=== PATIENT | male | born 1975 | race Caucasian/White ===

== ENCOUNTER 2017-03-23 07:04 | Day surgery (SDC) | payer BC ==
[2017-03-23] VITALS (8 sets, daily range): BP systolic 114–129; BP diastolic 64–88
[~2017-03-23] VITALS: Ht 182.9 cm; Wt 79.4 kg
[2017-03-23] MEDS ORDERED: TIVICAY50 MG ORAL (07:47)
[2017-03-23] MEDS ORDERED: DESCOVY 200-251 EACH PO (07:47)
--- NOTE | 2017-03-23 08:59 | Pre-Procedure Note/Attestation ---
Pre-Procedure Note/Attestation Complete Prior to Procedure Planned Procedure: not applicable Procedure Narrative: egd Indications for Procedure Pre-Operative Diagnosis: dysphagia Attestation I attest that I discussed the nature of the procedure; its benefits; risks and complications; and alternatives (and the risks and benefits of such alternatives ), prior to the procedure, with the patient (or the patient's legal bilingual inside sales representative). I attest that, if there was a reasonable possibility of needing a blood transfusion, the patient (or the patient's legal bilingual inside sales representative) was given the [facility] standardized written summary, pursuant to the Richie Hobucken Blood Safety Act ([place] Health and Safety Code # 1645, as amended). I attest that I re-evaluated the patient just prior to the surgery and that there has been no change in the patient's H&P, except as documented below: ERLINDA GARZA March 23, 2017 08:59
[2017-03-23] MEDS ORDERED: Propofol 10mg/ml 20ml IV ONE (09:00)
[2017-03-23] MEDS ORDERED: LR 1000ml ONE (09:00)
--- NOTE | 2017-03-23 09:01 | Short Stay Surgery H&P ---
History of Present Illness History of Present Illness Chief Complaint dysphagia HPI Saw Nance is a 41 year old male who was admitted on for Dysphegia Patient History PAST MEDICAL HISTORY: (1) Schatzki's ring of distal esophagus Past Surgeries: Social History: Medication History Scheduled Dolutegravir Sodium (Tivicay), 50 MG ORAL DAILY, (Reported) Emtricitabine/Tenofov Alafenam (Descovy 200-25 mg Tablet), 1 EACH PO DAILY, ( Reported) Review of Systems Cardiovascular: Reports: no symptoms Respiratory: Reports: no symptoms Skeletal: Reports: no symptoms Gastrointestinal: Reports: no symptoms Genitourinary: Reports: no symptoms Neurologic: Reports: no symptoms Endocrine: Reports: no symptoms Hematologic: Reports: no symptoms Physical Exam Vital Signs Last Vital Signs Date Time Temp Pulse Resp B/P Pulse Ox O2 Delivery O2 Flow Rate FiO2 03/23/17 07:42 97.5 58 20 123/73 96 Room Air Skin: normal HENT: normal Heart: normal Lungs: normal Abdomen: normal Extremities: normal Plan Plan of Care egd Final Diagnosis: Attestation Are the patient's medical conditions optimized for surgery? Attestation Response: yes ERLINDA GARZA March 23, 2017 09:01
--- NOTE | 2017-03-23 09:13 | Endoscopy Procedure Note ---
Endoscopy Procedure Note Indication for Procedure: dyaphagia Procedures Performed: EGD Operative Findings/Diagnosis: eosinophilic esophagitis Specimen: yes Pt Tolerated Procedure Well: Yes Estimated Blood Loss: none Anesthesiologist: darci Anesthesia: MAC Implant(s) used?: No 50 yrs or older w/o bx or poly: Not Applicable 10yrs. F/U not recommended: Not Applicable ERLINDA GARZA March 23, 2017 09:13
--- NOTE | 2017-03-23 10:42 | Anethesia Preoperative Eval ---
Anesthesia Pre-op PMH/ROS General Date of Evaluation: March 23, 2017 Time of Evaluation: 10:00 ASA Score: ASA 1 Mallampati Score Class I : Soft palate, uvula, fauces, pillars visible Class II: Soft palate, uvula, fauces visible Class III: Soft palate, base of uvula visible Class IV: Only hard plate visible Mallampati Classification: Class I Allergies: Coded Allergies: PENICILLINS (Verified Allergy, Intermediate, Rash, 03/23/17) Past Medical History Other: other - hiv Anesthesia Pre-op Phys. Exam Physician Exam Last Vital Signs Date Time Temp Pulse Resp B/P Pulse Ox O2 Delivery O2 Flow Rate FiO2 03/23/17 10:28 98.4 53 16 122/86 98 Room Air 03/23/17 09:30 2.0 Scarlett Callejas MD March 23, 2017 10:42
--- NOTE | 2017-03-23 10:43 | 48 Hour Post Anesthesia Eval ---
Post Anesthesia Evaluation Procedure: egd Date of Evaluation: March 23, 2017 Time of Evaluation: 10:43 Mental Status/LOC: patient returned to baseline Follow-up care needed: ready to discharge Scarlett Callejas MD March 23, 2017 10:43
--- NOTE | 2017-03-23 10:43 | Immediate Post-Op Evaluation ---
Immediate Post-Op Evalulation Immediate Post-Op Evalulation Procedure: egd Date of Evaluation: March 23, 2017 Time of Evaluation: 10:00 Nausea: No Vomiting: No Patient Status: awake, ventilated Hydration Status: adequate Scarlett Callejas MD March 23, 2017 10:43
--- NOTE | 2017-03-23 19:19 | Procedure Note ---
DATE OF PROCEDURE: 03/23/2017 ENDOSCOPIST: Gómez Medrano MD ANESTHESIOLOGIST: PROCEDURE PERFORMED: Upper endoscopy with biopsy. INSTRUMENT USED: Olympus adult flexible endoscope. INDICATIONS FOR PROCEDURE: Dysphagia. REASON FOR PROCEDURE: The procedure, risks, benefits, and possible consequences, including hemorrhage, aspiration, perforation and infection, and alternative treatments, were explained to the patient/legal guardian by Dr. Nato Tomas and the patient/legal guardian understood and accepted these risks. DESCRIPTION OF PROCEDURE: After informed consent was obtained, and the patient was adequately sedated, Olympus upper endoscope was advanced from mouth into the esophagus. The patient had a distal esophageal stricture right at the opening of the stomach at the GE junction. We were able to gently negotiate the scope through the stricture and open the stricture with the scope, which caused a a little bit of tear in the mucosa and minimal bleeding, but the scope was after that passed in the stomach. In the stomach, there was diffuse gastritis. Random biopsies from antrum was obtained to rule out H. pylori infection. In the duodenum, the patient had mild duodenitis. The patient also had evidence of hiatal hernia seen on the retroflexed . Then on the way back, we actually did biopsy of the distal esophagus. The patient had evidence of changes consideration for eosinophilic esophagitis including distal esophageal ring and also bowels that are highly suspicious for mucinous esophagitis. The patient tolerated the procedure well without any complication. FINDINGS: 1. Changes in the left esophagus highly suspicious for mucinous esophagitis, status post biopsy. 2. Distal esophageal stricture, status post dilation with the scope. 3. Hiatal hernia. 4. Gastritis. 5. Duodenitis. RECOMMENDATIONS: 1. Follow biopsy results and treat accordingly. 2. The patient to follow up in the office for treatment of eosinophilic esophagitis. Nato Tomas M.D. DR: Tish JOB#: [id number] CC:
== END 2017-03-23 11:05 | disposition home or self-care (01) ==
LOC: GAS 07:04
DX: K22.2 Esophageal obstruction (principal); K44.9 Diaphragmatic hernia without obstruction or gangrene; K20.0 Eosinophilic esophagitis; K29.50 Unspecified chronic gastritis without bleeding; K29.80 Duodenitis without bleeding; Z88.0 Allergy status to penicillin
CPT/HCPCS: 43239; J2704; J7120; 94003; 94150

== ENCOUNTER 2017-10-23 08:08 | Day surgery (SDC) | payer BC ==
[~2017-10-23] VITALS: Ht 182.9 cm; Wt 79.4 kg
[2017-10-23] VITALS (9 sets, daily range): BP systolic 105–123; BP diastolic 68–78
--- NOTE | 2017-10-23 06:36 | Anethesia Preoperative Eval ---
Anesthesia Pre-op PMH/ROS General Date of Evaluation: Oct 23, 2017 Time of Evaluation: 06:34 Anesthesiologist: fatmata ASA Score: ASA 3 Mallampati Score Class I : Soft palate, uvula, fauces, pillars visible Class II: Soft palate, uvula, fauces visible Class III: Soft palate, base of uvula visible Class IV: Only hard plate visible Mallampati Classification: Class I Surgeon: ray Diagnosis: constipation Surgical Procedure: colonoscopy Social History: current smoker Allergies: Coded Allergies: PENICILLINS (Verified Allergy, Intermediate, Rash, 10/23/17) Medications: see eMAR Past Medical History Hematology/Immune: Reports: other - hiv Anesthesia Pre-op Phys. Exam Physician Exam Last Vital Signs Date Time Temp Pulse Resp B/P (MAP) Pulse Ox O2 Delivery O2 Flow Rate FiO2 10/23/17 08:48 97.8 59 17 123/73 99 Room Air Constitutional: NAD Neurologic: CN 2-12 intact Cardiovascular: RRR Respiratory: CTA Gastrointestinal: S/NT/ND Airway Exam Mallampati Score: Class II MO: full Neck: supple TMD: 2fb ROM: full Teeth: intact Anesthesia Pre-op A/P Risk Assessment & Plan Assessment: asa3 Plan: mac Status Change Before Surgery: No Pre-Antibiotics Drug: JESSE Vinson Oct 23, 2017 06:36
[~2017-10-23 08:08] MED LIST: DESCOVY 200-251 EACH PO; TIVICAY50 MG ORAL
--- NOTE | 2017-10-23 09:47 | Pre-Procedure Note/Attestation ---
Pre-Procedure Note/Attestation Complete Prior to Procedure Planned Procedure: not applicable Procedure Narrative: esophagogastroduodenoscopy and colonoscopy Indications for Procedure Pre-Operative Diagnosis: constipation, eosinophilic esophagitis Attestation I attest that I discussed the nature of the procedure; its benefits; risks and complications; and alternatives (and the risks and benefits of such alternatives ), prior to the procedure, with the patient (or the patient's legal small business representative). I attest that, if there was a reasonable possibility of needing a blood transfusion, the patient (or the patient's legal small business representative) was given the [facility] standardized written summary, pursuant to the Richie Donald Blood Safety Act ([place] Health and Safety Code # 1645, as amended). I attest that I re-evaluated the patient just prior to the surgery and that there has been no change in the patient's H&P, except as documented below: ERLINDA GARZA Oct 23, 2017 09:47
--- NOTE | 2017-10-23 09:48 | Short Stay Surgery H&P ---
History of Present Illness History of Present Illness Chief Complaint constipation, eosinophilic esophagitis HPI Saw Nance is a 42 year old male who was admitted on for Constipation Patient History Allergies: Coded Allergies: PENICILLINS (Verified Allergy, Intermediate, Rash, 10/23/17) PAST MEDICAL HISTORY: Past Surgeries: Social History: Medication History Scheduled Dolutegravir Sodium (Tivicay), 50 MG ORAL DAILY, (Reported) Emtricitabine/Tenofov Alafenam (Descovy 200-25 mg Tablet), 1 EACH PO DAILY, ( Reported) Review of Systems Cardiovascular: Reports: no symptoms Respiratory: Reports: no symptoms Skeletal: Reports: no symptoms Gastrointestinal: Reports: no symptoms Genitourinary: Reports: no symptoms Neurologic: Reports: no symptoms Endocrine: Reports: no symptoms Physical Exam Vital Signs Last Vital Signs Date Time Temp Pulse Resp B/P (MAP) Pulse Ox O2 Delivery O2 Flow Rate FiO2 10/23/17 08:48 97.8 59 17 123/73 99 Room Air Skin: normal HENT: normal Heart: normal Lungs: normal Abdomen: normal Extremities: normal Plan Plan of Care esophagogastroduodenoscopy and colonoscopy Final Diagnosis: Attestation Are the patient's medical conditions optimized for surgery? Attestation Response: yes ERLINDA GARZA Oct 23, 2017 09:48
[2017-10-23] MEDS ORDERED: Propofol 200mg/20ml IV ONE (10:00)
[2017-10-23] MEDS ORDERED: Lidocaine 1% MPF 10mg/ml 5ml ONE (10:00)
[2017-10-23] MEDS ORDERED: Atropine Inj 1mg/10ml Syr IV PRN (10:00)
[2017-10-23] MEDS ORDERED: DiphenhydrAMINE 50mg/ml Inj IVP PRN (10:00)
[2017-10-23] MEDS ORDERED: fentaNYL 100 mcg/2 mL IV PRN (10:00)
[2017-10-23] MEDS ORDERED: Midazolam 2mg/2ml Inj IVP PRN (10:00)
--- NOTE | 2017-10-23 10:28 | Endoscopy Procedure Note ---
Endoscopy Procedure Note Indication for Procedure: ESOPHAGITIS, CONSTIPATION Procedures Performed: EGD, colonoscopy Operative Findings/Diagnosis: same Specimen: yes Pt Tolerated Procedure Well: Yes Estimated Blood Loss: none Anesthesiologist: cielo Anesthesia: MAC Implant(s) used?: No 50 yrs or older w/o bx or poly: Yes 10yrs. F/U not recommended: Yes If not recommended, why?: Above average risk 10 yrs. F/U needed: Yes 18 years or older w/prev. colo: No ERLINDA GARZA Oct 23, 2017 10:28
--- NOTE | 2017-10-23 10:49 | Immediate Post-Op Evaluation ---
Immediate Post-Op Evalulation Immediate Post-Op Evalulation Procedure: egd/colonoscopy Date of Evaluation: Oct 23, 2017 Time of Evaluation: 10:48 IV Fluids: 350ml 0.9ns Blood Products: none Estimated Blood Loss: negligible Blood Pressure Systolic: 117 Blood Pressure Diastolic: 74 Pulse Rate: 59 Respiratory Rate: 18 O2 Sat by Pulse Oximetry: 99 Temperature (Fahrenheit): 97.2 Pain Score (1-10): 0 Nausea: No Vomiting: No Complications none Patient Status: awake, reacts, patent Hydration Status: adequate Drug: JESSE Vinson Oct 23, 2017 10:49
--- NOTE | 2017-10-23 10:51 | 48 Hour Post Anesthesia Eval ---
Post Anesthesia Evaluation Procedure: egd/colonoscopy Date of Evaluation: Oct 23, 2017 Time of Evaluation: 10:50 Blood Pressure Systolic: 125 0: 74 Pulse Rate: 60 Respiratory Rate: 18 Temperature (Fahrenheit): 97.2 O2 Sat by Pulse Oximetry: 99 Airway: patent Nausea: No Vomiting: No Pain Intensity: 0 Hydration Status: adequate Cardiopulmonary Status: stable Mental Status/LOC: patient returned to baseline Post-Anesthesia Complications: none Follow-up care needed: N/A JESSE VERA Oct 23, 2017 10:51
[2017-10-23 12:39] LABS: THYROID STIMULATING HORMONE 0.885 uiU/mL (0.358-3.740)
--- NOTE | 2017-10-23 18:30 | Procedure Note ---
DATE OF PROCEDURE: 10/23/2017 SURGEON: Nato Tomas M.D. PROCEDURE: Upper endoscopy with biopsy and colonoscopy. ANESTHESIA: Per Dr. Ahuja. INSTRUMENT: Olympus upper flexible endoscope and colonoscope. INDICATION: History of eosinophilic esophagitis and constipation. The procedure, risks, benefits, and possible consequences, including hemorrhage, aspiration, perforation and infection, and alternative treatments, were explained to the patient/legal guardian by Dr. Nato Tomas and the patient/legal guardian understood and accepted these risks. DESCRIPTION OF PROCEDURE: After informed consent was obtained and the patient was adequately sedated, Olympus upper endoscope was advanced from mouth into the second portion of the duodenum and retroflexion was performed in the stomach. The patient had evidence of distal esophageal stricture. We had to kind of relatively push the scope through it. It caused a little bit of mucosal tear and dilation with the scope. The patient had evidence of eosinophilic esophagitis. There was evidence of linear bubbles and rings highly suggestive of eosinophilic esophagitis. Biopsy was obtained. The rest of the exam was grossly within normal limits. The patient tolerated the procedure very well without any complication. At this time, the patient was turned over for colonoscopy. First, a rectal exam was performed, which was positive for external hemorrhoids. Then, the scope was advanced from the rectum into the cecum documented by appendiceal orifice, ileocecal valve, and right upper quadrant palpation. Quality of prep was very good. The patient had some scattered diverticulosis in the left colon. Retroflexion of rectum showed evidence of some hemorrhoids. Otherwise, the rest of the examination grossly looked within normal limits. SUMMARY OF FINDINGS: 1. Eosinophilic esophagitis, status post biopsy. 2. Esophageal ring status post dilation with the scope. 3. Scattered sigmoid diverticulosis. 4. External hemorrhoids. RECOMMENDATIONS: 1. Follow up biopsy results and treat accordingly. 2. The patient is to follow in the clinic for further management of his eosinophilic esophagitis. Nato Tomas M.D. DR: MORENITA JOB#: [id number] CC:
== END 2017-10-23 12:15 | disposition home or self-care (01) ==
LOC: GAS 08:08
DX: K57.90 Diverticulosis of intestine, part unspecified, without perforation or abscess without bleeding (principal); K64.4 Residual hemorrhoidal skin tags; K20.0 Eosinophilic esophagitis; Z88.0 Allergy status to penicillin
CPT/HCPCS: 36415; 43239; 45378; 84439; 84443; J2704; 94003; 94150